=== PATIENT | male | born 1980 | race African-American/Black ===

== ENCOUNTER 2019-03-15 08:02 | Day surgery (SDC) | payer OTHER ==
[~2019-03-15] VITALS: Ht 180.3 cm; Wt 90.4 kg
[2019-03-15 08:34] VITALS: BP 136/75; PULSE 69; TEMP 98.1
[2019-03-15 11:25] VITALS: BP 114/63; PULSE 64; TEMP 98.3
--- NOTE | 2019-03-15 11:25 | NUR ---
Pt to [facility] via cart from PACU. Pt awake and alert. Pt denies pain or nausea. IVF infusing without difficulties. Muffin and water given per pt request. Will continue to monitor. Call light within reach.
[2019-03-15 11:40] VITALS: BP 110/70; PULSE 59
--- NOTE | 2019-03-15 11:40 | NUR ---
Pt up to restroom with stand by assistance. Pt voids without difficulties. Pt back to room. Will continue to monitor. Call light within reach.
[2019-03-15 11:55] VITALS: BP 116/74; PULSE 53
--- NOTE | 2019-03-15 11:55 | NUR ---
Pt denies pain or nausea. Will continue to monitor. Call light within reach.
[2019-03-15 12:05] VITALS: BP 117/71; PULSE 54
--- NOTE | 2019-03-15 12:05 | NUR ---
Pt continues to rest. Denies needs. Call light within reach.
[2019-03-15 12:20] VITALS: BP 121/75; PULSE 54
--- NOTE | 2019-03-15 12:20 | NUR ---
Discharge instructions reviewed. Pt voices understanding. IV site discontinued with all parts intact. Pt up to dress. Call light within reach.
--- NOTE | 2019-03-15 12:30 | NUR ---
Pt escorted to private car via wheel chair. Pt accompanied home by his .
== END 2019-03-15 12:30 | disposition home or self-care (01) ==
LOC: SDCO 08:02
DX: R33.9 Retention of urine, unspecified (principal); R31.0 Gross hematuria; Z84.1 Family history of disorders of kidney and ureter
CPT/HCPCS: C1769; J0690; J1100; J1885; J2250; J2405; J2704; J3010; J7120; Q9967